=== PATIENT | female | born 1950 | race Caucasian/White ===

== ENCOUNTER 2024-05-20 08:18 | Outpatient (CLI) | payer OTHER | END 2024-05-20 08:19 | disposition home or self-care (01) | LOC: SCSRAD 08:18 | PROVIDERS: ATTEND Nurse Practitioner | DX: M46.1 Sacroiliitis, not elsewhere classified (principal) | CPT/HCPCS: 72190 ==

== ENCOUNTER 2024-12-15 13:23 | Outpatient (CLI) | payer MEDICARE | END 2024-12-15 13:24 | disposition home or self-care (01) | LOC: SCSRAD 13:23 | PROVIDERS: ATTEND Orthopaedic Surgery | DX: M51.360 Other intervertebral disc degeneration, lumbar region with discogenic back pain only (principal); I70.0 Atherosclerosis of aorta; Z98.1 Arthrodesis status; Z98.890 Other specified postprocedural states | CPT/HCPCS: 72100 ==